=== PATIENT | male | born 1985 | race Caucasian/White ===

== ENCOUNTER 2017-01-25 07:39 | Inpatient (IN) | payer OTHER ==
[~2017-01-25] VITALS: Ht 172.7 cm; Wt 78.2 kg
--- NOTE | ~2017-01-25 | DS ---
Unit #: [id number] #: [id number] Patient: JENNIFER LAMBERT [id number] [address] [address] [id number] I MR#: [id number] NAME: JENNIFER LAMBERT ROOM: [facility] Age: 31 Sex: M Admission Date: 01/25/2017 : 1985 Discharge Date: 01/27/2017 Attending Physician: Al Woodall M.D. Primary Care Physician: Primary Care Physician No DISCHARGE SUMMARY PRIMARY DIAGNOSIS Unintentional heroin overdose. SECONDARY DIAGNOSES Aspiration pneumonia; acute hypoxemic respiratory failure, resolved at discharge; hypokalemia, resolved at discharge; subjective reports of red sputum production. HOSPITAL COURSE The patient was admitted to the hospital with heroin overdose, was treated with Narcan and required oxygen with an abnormal chest x-ray suggestive of aspiration pneumonia. Blood cultures were negative at the time of discharge. The patient clinically improved rapidly and his white count normalized. He had no further fevers. His cough and sputum production decreased significantly. He is going to be placed on Augmentin for an additional 7 days for aspiration pneumonia. As he does report that his sputum production is red, I have advised him that if it fails to clear completely, he needs to come back to clinic or emergency room in 10 days for evaluation for the possibility of hemoptysis. I certainly do not expect this to be the case and I expect his cough and sputum production to resolve. DISCHARGE DISPOSITION To home. DISCHARGE STATUS Stable. DISCHARGE ACTIVITY Ad topher. DISCHARGE DIET Unrestricted. DISCHARGE MEDICATIONS Augmentin 875 mg p.o. b.i.d. FOLLOWUP With his PCP in 1 to 5 weeks or sooner if he is having red sputum still in 10 days. Dictated by... Unit #: [id number] #: [id number] Patient: JENNIFER LAMBERT Al Woodall M.D. JESSE/shruti TD: 01/30/2017 03:11 JOB #: [id number] DISCHARGE SUMMARY Page 1 of 1 X Al Woodall MD DISCHARGE SUMMARY
--- NOTE | ~2017-01-25 | CR63 ---
[facility] A Service of [facility] & [facility] RADIOLOGY TEXT RESULTS PATIENT: JENNIFER LAMBERT LOCATION: [facility] [id number] : [birth year] UNIT #: [id number] AGE: [address]: Al Woodall MD SEX: M ORDER DR: [id number] [facility] [address] [facility] [address] [place], [place] [address] [id number] I MR#: [id number] #: [id number] NAME: JENNIFER LAMBERT : 1985 SEX: M STUDY DATE/TIME: 01/26/2017 7:35 UNIT: [facility] ROOM: [facility] STUDY DESCRIPTION: CR Chest 2 View Attending Physician: Al Woodall M.D. Ordering Physician: Joyce Deleon M.D. Primary Care Physician: No Primary Care Physician MEDICAL IMAGING REPORT This report is preliminary unless electronic signature is present EXAM PA and lateral chest. INDICATIONS Hemoptysis for 1 day. COMPARISON With yesterday. FINDINGS There is improved inspiratory volume. There is improvement in the appearance of the lungs with decreased airspace infiltrates bilaterally. Heart size stable. Visualized osseous structures are unremarkable. IMPRESSION Improved inspiratory volume with decreased bilateral airspace infiltrates. Dictated by... Dread Gutierrez M.D. THIS IS AN ELECTRONICALLY VERIFIED REPORT Dread Gutierrez M.D. at 01/27/2017 4:59 PM ARS/beth TD: 01/26/2017 14:13 JOB #: [id number] MEDICAL IMAGING REPORT Page 1 of 1 COPY
--- NOTE | ~2017-01-25 | EKG ---
PATIENT: JENNIFER LAMBERT UNIT #: [id number] Ventricular Rate: 65 BPM Atrial Rate: 65 BPM P-R Interval: 126 ms QRS Duration: 98 ms Q-T Interval: 422 ms QTC Calculation(Bezet): 438 ms P [place]: 36 degrees Calculated R [place]: 78 degrees Calculated T [place]: 67 degrees Diagnosis Line: Normal sinus rhythm Diagnosis Line: Normal ECG Diagnosis Line: No previous ECGs available Diagnosis Line: Confirmed by JORDAN DIAZ MD ([id number]) on Diagnosis Line: 01/25/2017 7:39:10 PM INTERPRETING MD: EMILY KELSEY
--- NOTE | ~2017-01-25 | HP ---
Unit #: [id number] #: [id number] Patient: JENNIFER LAMBERT [id number] [address] [address] [id number] I MR#: [id number] NAME: JENNIFER LAMBERT ROOM: [address] Age: 31 Sex: M Admission Date: 01/25/2017 : 1985 Attending Physician: Madie Martino M.D. Primary Care Physician: No Primary Care Physician HISTORY AND PHYSICAL CHIEF COMPLAINT Overdose. HISTORY OF PRESENT ILLNESS The patient is a 31-year-old male with a past medical history of polysubstance abuse, hepatitis C, who presented to the emergency department for evaluation of the above. The patient states that he injected heroin. He denies any suicidal or homicidal ideation. He was apparently initially unresponsive but arousable after 8 mg of Narcan. The patient denies any fever. He has had cough. He denies any abdominal pain, no urinary symptoms. In the emergency department, initial oxygen saturation was 88% on room air. Chest x-ray shows edema versus infiltrate. He was given Zosyn in the emergency department. He is being admitted to [facility] for evaluation and further treatment. PAST MEDICAL HISTORY 1. Admission to [facility] about a month ago for overdose (no records). 2. Hepatitis C. PAST SURGICAL HISTORY Right knee surgery. SOCIAL HISTORY The patient lives with his girlfriend. He smokes a pack of cigarettes daily. He reports occasional alcohol use. He injects heroin. He also uses methamphetamine and cocaine. He is not interested in rehab. FAMILY HISTORY Notable for his mother having some type of cancer. ALLERGIES No known allergies. HOME MEDICATIONS Gabapentin. Home medications will need to be reviewed and verified. REVIEW OF SYSTEMS A complete review of systems is negative except as indicated in HPI. DIAGNOSTIC STUDIES Unit #: [id number] #: [id number] Patient: JENNIFER LAMBERT IMAGING: Chest x-ray reveals edema versus infiltrate. LABORATORY: Lactic acid is 0.9. Comprehensive metabolic panel notable for potassium of 3.3, glucose is 161. AST and ALT are 54 and 70 respectively. Complete blood count notable for white blood cell count of 13.7. PHYSICAL EXAMINATION VITAL SIGNS: Temperature 98.7, pulse 107, respirations 18, blood pressure 118/77. Oxygen saturation 88% on room air. Most recently 98%. GENERAL: The patient is a male who is sleeping but wakes to voice. HEENT: The head is atraumatic. Mucous membranes are moist. NECK: Supple. Trachea is midline. CARDIOVASCULAR: Regular rate and rhythm. LUNGS: Demonstrate a few scattered rhonchi. Breathing is not labored. ABDOMEN: Soft, nontender with bowel sounds present in all four quadrants. EXTREMITIES: Nontender with no pedal edema. NEURO: The patient is awake and alert. He is oriented x3. He follows commands. PSYCH: Mood and affect are normal. The patient demonstrates poor judgment and insight. SKIN: Skin of examined areas is warm and dry. ASSESSMENT The patient is a 31-year-old male with: 1. Acute respiratory failure, hypoxic. 2. Pneumonia, concerning for aspiration: The patient received Zosyn in the emergency department. 3. Heroin overdose, unintentional. 4. Hypokalemia with a potassium of 3.3. 5. Transaminitis, likely secondary to hepatitis C. 6. Sepsis with an initial lactic acid of 0.9. 7. Hepatitis C. 8. Tobacco abuse. 9. Polysubstance abuse. PLAN 1. Admit to intermediate level. 2. Titrate oxygen to keep sats greater than 92%. 3. Blood cultures x2. 4. Sputum culture and sensitivity. 5. Zosyn IV for aspiration pneumonia. 6. Neuro checks. 7. HIV and hepatitis panel. 8. Urine tox scan. 9. environmental services manager/social work consult regarding IV drug use. 10. Check magnesium level. 11. Potassium/magnesium protocol. 12. Sepsis protocol to repeat lactic acid. 13. EKG if not done. 14. SCDs for DVT prophylaxis. 15. Additional workup and consultants based on above. Unit #: [id number] #: [id number] Patient: JENNIFER LAMBERT Dictated by Madie Martino M.D. DAYAMI/denise TD: 01/25/2017 13:19 JOB #: [id number] HISTORY AND PHYSICAL Page 1 of 1 X Madie Martino MD X HISTORY AND PHYSICAL
--- NOTE | ~2017-01-25 | CR72 ---
[facility] A Service of [facility] & [facility] RADIOLOGY TEXT RESULTS PATIENT: JENNIFER LAMBERT [facility] [birth year] UNIT #: [id number] AGE: [address]: Madie Martino MD SEX: M ORDER DR: [id number] [facility] [address] [place], [place] [address] [id number] MR#: [id number] Acc #: [id number] NAME: JENNIFER LAMBERT : 1985 SEX: M STUDY DATE/TIME: 01/25/2017 8:25 UNIT: [facility] ROOM: STUDY DESCRIPTION: CR Chest Single View Portable Attending Physician: Julia La A.P.R.N. Ordering Physician: Daljit Dumont M.D. Primary Care Physician: Primary Care Physician No MEDICAL IMAGING REPORT This report is preliminary unless electronic signature is present EXAM Portable chest 01/25/2017. [facility] HISTORY 31-year-old male short of air, heroin overdose. Narcan given. Patient is smoker as well. COMPARISON Portable chest 03/07/2013. FINDINGS AP portable chest demonstrates generalized bilateral pulmonary infiltrates consistent with alveolar edema although aspiration is not completely excluded. No evidence for fluid at this time. Heart size is normal. IMPRESSION Generalized pulmonary alveolar edema consistent with opioid overdose. Aspiration pneumonia less likely. Dictated by... Mohinder Marcum M.D. THIS IS AN ELECTRONICALLY VERIFIED REPORT Mohinder Marcum M.D. at 01/25/2017 12:15 PM JUANJOSE/janee TD: 01/25/2017 08:57 JOB #: [id number] MEDICAL IMAGING REPORT Page 1 of 1 COPY
[2017-01-25 08:29] LABS: BASOPHIL# 0.1 X10e3 (0-0.3); BASOPHIL% 0.4 % (0-2.5); EOSINOPHIL# 0.1 X10e3 (0-0.7); EOSINOPHIL% 0.9 % (0.0-7.0); HEMATOCRIT 44.4 % (38.0-50.0); HEMOGLOBIN 14.5 gm/dL (13.0-16.0); LYMPHOCYTE# 1.4 X10e3 (1.0-3.5); LYMPHOCYTE% 10.5 % (17.0-45.0); MEAN CELL VOLUME 85.7 FL (83-96); MEAN CORPUSCULAR HGB CONC 32.7 g/dL (30-36); MEAN PLATELET VOLUME 9.4 FL (6.5-11.5); MONOCYTE# 0.7 X10e3 (0-1.0); MONOCYTE% 5.4 % (3.0-12.0); NEUTROPHIL# 11.4 X10e3 (1.5-7.1); NEUTROPHIL% 82.8 % (40-75); PLATELET COUNT 230 X10e3 (140-420); RED BLOOD COUNT 5.19 X10e (3.90-5.60); RED CELL DISTRIBUTION WIDTH 13.5 % (11.0-15.5); WHITE BLOOD COUNT 13.7 X10e3 (4.0-10.5)
[2017-01-25 08:30] LABS: DIFF IND NO
[2017-01-25 08:57] LABS: BILIRUBIN, DIRECT 0.1 mg/dL (0.0-0.2); BILIRUBIN,INDIRECT 0.7 mg/dL (0.0-0.9); BILIRUBIN,TOTAL 0.8 mg/dL (0.2-2.0); GLOM FILT RATE Estimated 100.6 mL/min (>60); POTASSIUM 3.3 mmol/L (3.5-5.1); PROTEIN TOTAL SERUM 7.1 g/dL (6.0-8.3)
[2017-01-25] MEDS ORDERED: NO MEDICATIONS (10:02)
[2017-01-26 05:29] LABS: HEMATOCRIT 46.1 % (38.0-50.0); HEMOGLOBIN 14.9 gm/dL (13.0-16.0); MEAN CELL VOLUME 87.5 FL (83-96); MEAN CORPUSCULAR HEMOGLOBIN 28.3 PG (28-34); MEAN CORPUSCULAR HGB CONC 32.4 g/dL (30-36); MEAN PLATELET VOLUME 9.7 FL (6.5-11.5); RED BLOOD COUNT 5.27 X10e (3.90-5.60); RED CELL DISTRIBUTION WIDTH 13.7 % (11.0-15.5)
[2017-01-26 06:46] LABS: ALBUMIN SERUM 3.6 g/dL (3.5-5.0); BILIRUBIN,TOTAL 0.6 mg/dL (0.2-2.0); BUN/CREATININE RATIO 11.25; CALCIUM SERUM 8.9 mg/dL (8.4-10.2); CREATININE SERUM 0.8 mg/dL (0.6-1.4); GLOM FILT RATE Estimated 119.9 mL/min (>60); MAGNESIUM 1.9 mg/dL (1.6-3.0); POTASSIUM 3.5 mmol/L (3.5-5.1); PROTEIN TOTAL SERUM 6.6 g/dL (6.0-8.3)
[2017-01-27 06:26] LABS: HEMATOCRIT 38.3 % (38.0-50.0); MEAN CELL VOLUME 85.9 FL (83-96); MEAN CORPUSCULAR HEMOGLOBIN 28.8 PG (28-34); MEAN CORPUSCULAR HGB CONC 33.5 g/dL (30-36); MEAN PLATELET VOLUME 9.6 FL (6.5-11.5); RED BLOOD COUNT 4.45 X10e (3.90-5.60); RED CELL DISTRIBUTION WIDTH 13.5 % (11.0-15.5)
[2017-01-27 06:36] LABS: HEMOGLOBIN 12.8 gm/dL (13.0-16.0)
[2017-01-27 08:16] LABS: MAGNESIUM 1.8 mg/dL (1.6-3.0); POTASSIUM 3.8 mmol/L (3.5-5.1)
[2017-01-27] MEDS ORDERED: AUGMENTIN PO (15:05)
[2017-01-28 18:44] LABS: HA AB IGM (HEPPAN) Nonreactive (()); HB CORE AB IGM (HEPPAN) Nonreactive (Nonreactive); HB S AG (HEPPAN) Nonreactive (Nonreactive); HEP C AB (HEPPAN) Reactive (Nonreactive)
== END 2017-01-27 16:38 | disposition home or self-care (01) | DRG 917 ==
LOC: CED 07:39 → CEDOF 10:00 → C5C 10:00 → CED 11:29 → CEDOF 11:29 → C5C 16:51 → CEDOF 16:51 → C5C 01-26 08:31
PROVIDERS: Family Medicine; Internal Medicine; Nurse Practitioner
DX: T40.1X1A Poisoning by heroin, accidental (unintentional), initial encounter (principal); J96.01 Acute respiratory failure with hypoxia; J69.0 Pneumonitis due to inhalation of food and vomit; A41.9 Sepsis, unspecified organism; E87.6 Hypokalemia; R74.0 Nonspecific elevation of levels of transaminase and lactic acid dehydrogenase [LDH]; B19.20 Unspecified viral hepatitis C without hepatic coma; F19.10 Other psychoactive substance abuse, uncomplicated; F17.210 Nicotine dependence, cigarettes, uncomplicated
CPT/HCPCS: 36415; 71010; 71020; 80048; 80053; 80074; 80076; 83605; 83735; 84132; 85025; 85027; 87040; 87070; 87205; 87522; 87806; 93005; 94640; 94760; 96361; 96374; 99285; J2405; J2543; J3475